=== PATIENT | female | born 1935 | race Caucasian/White ===

== ENCOUNTER 2016-11-23 14:45 | Inpatient (IN) | payer MEDICARE ==
[2016-11-23] MEDS ORDERED: Loperamide HCl 2 MG CAP PO PRN (18:26)
[2016-11-23] MEDS ORDERED: cloNIDine HCl 0.1 MG TAB PO PRN (18:26)
[2016-11-23] MEDS: Lorazepam 0.5 MG TAB PO SCH (20:49)
[2016-11-23] MEDS: Senokot S 8.6-50 MG TAB PO SCH (20:50)
[2016-11-23] MEDS: Metoprolol Tartrate 25 MG TAB PO SCH (20:50)
[2016-11-23] MEDS: Simvastatin 20 MG TAB PO SCH (20:50)
[2016-11-23] MEDS: Apixaban 5 MG TAB PO SCH (20:51)
[2016-11-24] MEDS: Calcium Carbonate + Vit D 1 TAB PO SCH (08:13)
[2016-11-24] MEDS: Clopidogrel Bisulfate 75 MG TAB PO SCH (08:13)
[2016-11-24] MEDS: Losartan Potassium 50 MG TAB PO SCH (08:14)
[2016-11-24] MEDS: Apixaban 5 MG TAB PO SCH ×2 (08:14→20:35)
[2016-11-24] MEDS: Metoprolol Tartrate 25 MG TAB PO SCH ×2 (08:17→20:35)
--- NOTE | 2016-11-24 15:08 | HP ---
DATE OF ADMISSION: 11/23/2016 CHIEF COMPLAINT: Physical deconditioning, status post aortic valve replacement. HISTORY OF PRESENT ILLNESS: An 81-year-old female who had her aortic valve replacement on 11/20/[address] Wynn at [facility] in [place]; a mechanical valve was placed for which she is currently anticoagulated on Plavix and Eliquis with the plan to possibly be discontinuing Plavix in approximately 6 months. She is to follow up with Dr. Wynn in 1-2 weeks and thereafter at [facility] in 1 month in [place]. The patient states her daughter is to schedule these appointments. She lives at a [facility] in [place] independently, but is unable to live at home and perform ADL's successfully at this time. She is admitted here for physical therapy and occupational therapy to successfully transfer back to her home facility, so that she may perform her activities of daily living. She denies chest pain or dyspnea. She has some generalized fatigue after participating with physical therapy this morning. She does have a walker to aid ambulation both here and at her home. She reports her intake and output to be at baseline. Her primary care provider is Dr. Gerardo Triplett in [place]. PAST MEDICAL HISTORY: Includes ulcerative colitis, hypertension, anxiety, constipation and hyperlipidemia. PAST SURGICAL HISTORY: She has had tumor removed from bilateral breasts, these were benign. Aortic valve has been replaced with a mechanical valve. She has a prior bladder suspension, left lower lobe back procedure, cholecystectomy, bilateral inguinal hernia repair, partial small bowel removal and a total abdominal hysterectomy bilateral salpingo-oophorectomy. SOCIAL HISTORY: She lives in [place] alone. She is a nonsmoker with no ETOH or illicit drug use. FAMILY HISTORY: She has 2 living brothers and one sister, all with cardiac history. She has one sister. One brother is from complications from diabetes and one brother status post motor vehicle accident. Her father of a myocardial infarction. Mother of colon cancer. ALLERGIES: She is allergic to MORPHINE. CURRENT MEDICATIONS: Include Caltrate 600 one tablet p.o. daily, vitamin D plus minerals, Psyllium Fiber two caps p.o. at bedtime, docusate sodium/senna one tab p.o. at bedtime, clonidine 0.1 mg p.o. q.2 hours p.r.n., tramadol 50 mg p.o. q.8 hours p.r.n., Plavix 75 mg p.o. daily, Eliquis 5 mg p.o. b.i.d., amlodipine 10 mg p.o. daily, simvastatin 10 mg p.o. at bedtime, Protonix 40 mg p.o. daily, metoprolol tartrate 25 mg p.o. b.i.d., losartan 100 mg p.o. daily, Ativan 2 mg p.o. at bedtime and loperamide 2 mg p.o. p.r.n. REVIEW OF SYSTEMS: GENERAL: The patient does report of generalized fatigue. She denies fever, chills or diaphoresis. EAR, NOSE AND THROAT. She denies sore throat, nasal drainage or congestion. CARDIOVASCULAR: Denies chest pain or palpitations. RESPIRATORY: Denies shortness of breath or cough. GASTROINTESTINAL: Denies abdominal pain, nausea, vomiting, diarrhea or constipation. GENITOURINARY: Denies dysuria or hematuria. MUSCULOSKELETAL: Denies joint pain or swelling. DERMATOLOGIC: Denies rash. NEUROLOGIC: Denies headache. LABORATORY DATA: None are pending. PHYSICAL EXAMINATION: VITAL SIGNS: Temperature is 98.1, pulse of 73, blood pressure 151/69, oxygen is 97% on room air. GENERAL: The patient is alert, cooperative, in no acute distress. HEAD, EYES, EARS, NOSE AND THROAT: Head is normocephalic and atraumatic. Eyes : Pupils are equal, round, and reactive to light. Extraocular muscles are intact. Sclerae and conjunctivae are clear. She has moist mucous membranes. NECK: Supple, without JVD, no meningeal signs. CARDIOVASCULAR: Regular rate and rhythm with normal S1, S2. There is a 2-3/6 systolic ejection murmur. RESPIRATORY: Clear to auscultation bilaterally without wheezes, rales or rhonchi. ABDOMEN: Soft, nontender to palpation. No rebound or guarding with normal bowel sounds. EXTREMITIES: No clubbing, cyanosis or edema. DERMATOLOGIC: No rashes. NEUROLOGICAL: Nonfocal. No focal deficits. PSYCHIATRIC: Cranial nerves II through XII are intact. ASSESSMENT AND PLAN: 1. Physical deconditioning. The patient will participate with physical therapy , occupational therapy here until she meets goals set, enabling her to return home and successfully perform her activities of daily living. Upon discharge, she may follow up with her PCP, Dr. Gerardo Triplett in [place]. 2. She is status post aortic valve replacement with mechanical valve, she is on appropriate anticoagulation therapy with plan to follow up with both Dr. Wynn and Cardiology team in [place] at [facility]. 3. Hypertension. Blood pressure is currently stable. We will continue her home medications and monitor her blood pressure regularly. 4. Hyperlipidemia. She is on a statin with no other side effects noted. 5. Anxiety. We will continue her home medication, benzodiazepine at bedtime as scheduled. 6. Prophylaxes. She is appropriately anticoagulated on Eliquis and Plavix; will resume her home proton pump inhibitor as well. SHEELA
[2016-11-24] MEDS ORDERED: Milk Of Magnesia 30 ML UDCUP PO PRN (15:55)
[2016-11-24] MEDS: Lorazepam 0.5 MG TAB PO SCH (20:35)
[2016-11-24] MEDS: Simvastatin 20 MG TAB PO SCH (20:35)
[2016-11-24] MEDS: Senokot S 8.6-50 MG TAB PO SCH (20:35)
[2016-11-25] MEDS: Apixaban 5 MG TAB PO SCH ×2 (08:29→21:02)
[2016-11-25] MEDS: Calcium Carbonate + Vit D 1 TAB PO SCH (08:29)
[2016-11-25] MEDS: Clopidogrel Bisulfate 75 MG TAB PO SCH (08:29)
[2016-11-25] MEDS: Losartan Potassium 50 MG TAB PO SCH (08:30)
[2016-11-25] MEDS: Metoprolol Tartrate 25 MG TAB PO SCH ×2 (08:30→21:05)
[2016-11-25] MEDS ORDERED: Lorazepam 0.5 MG TAB ONE (20:56)
[2016-11-25] MEDS: Lorazepam 0.5 MG TAB PO SCH (21:03)
[2016-11-25] MEDS: Simvastatin 20 MG TAB PO SCH (21:04)
[2016-11-25] MEDS: Senokot S 8.6-50 MG TAB PO SCH (21:04)
[2016-11-25] MEDS: traMADol HCl 50 MG TAB PO PRN (21:10)
[2016-11-26] MEDS ORDERED: Senokot 8.6 MG TAB PO PRN (07:51)
[2016-11-26] MEDS: Apixaban 5 MG TAB PO SCH ×2 (08:38→20:30)
[2016-11-26] MEDS: Losartan Potassium 50 MG TAB PO SCH (08:38)
[2016-11-26] MEDS: Calcium Carbonate + Vit D 1 TAB PO SCH (08:38)
[2016-11-26] MEDS: Metoprolol Tartrate 25 MG TAB PO SCH ×2 (08:38→20:29)
[2016-11-26] MEDS: Clopidogrel Bisulfate 75 MG TAB PO SCH (08:38)
[2016-11-26] MEDS: traMADol HCl 50 MG TAB PO PRN (13:28)
[2016-11-26] MEDS: Simvastatin 20 MG TAB PO SCH (20:29)
[2016-11-26] MEDS: Senokot S 8.6-50 MG TAB PO SCH (20:30)
[2016-11-26] MEDS: Lorazepam 0.5 MG TAB PO SCH (20:30)
[2016-11-27] MEDS: Calcium Carbonate + Vit D 1 TAB PO SCH (07:54)
[2016-11-27] MEDS: Clopidogrel Bisulfate 75 MG TAB PO SCH (09:14)
[2016-11-27] MEDS: Losartan Potassium 50 MG TAB PO SCH (09:14)
[2016-11-27] MEDS: Apixaban 5 MG TAB PO SCH ×2 (09:15→20:18)
[2016-11-27] MEDS: Metoprolol Tartrate 25 MG TAB PO SCH ×2 (09:15→20:19)
[2016-11-27] MEDS: Lorazepam 0.5 MG TAB PO SCH (20:18)
[2016-11-27] MEDS: Senokot S 8.6-50 MG TAB PO SCH (20:19)
[2016-11-27] MEDS: Simvastatin 20 MG TAB PO SCH (20:19)
[2016-11-27] MEDS: traMADol HCl 50 MG TAB PO PRN (20:20)
[2016-11-28] MEDS: Clopidogrel Bisulfate 75 MG TAB PO SCH (08:32)
[2016-11-28] MEDS: Losartan Potassium 50 MG TAB PO SCH (08:33)
[2016-11-28] MEDS: Metoprolol Tartrate 25 MG TAB PO SCH ×2 (08:35→20:43)
[2016-11-28] MEDS: Calcium Carbonate + Vit D 1 TAB PO SCH (08:35)
[2016-11-28] MEDS: Apixaban 5 MG TAB PO SCH ×2 (08:35→20:43)
[2016-11-28] MEDS: Simvastatin 20 MG TAB PO SCH (20:42)
[2016-11-28] MEDS: Senokot S 8.6-50 MG TAB PO SCH (20:43)
[2016-11-28] MEDS: Lorazepam 0.5 MG TAB PO SCH (20:43)
[2016-11-28] MEDS: traMADol HCl 50 MG TAB PO PRN (20:49)
[2016-11-29] MEDS: Losartan Potassium 50 MG TAB PO SCH (08:41)
[2016-11-29] MEDS: Metoprolol Tartrate 25 MG TAB PO SCH ×2 (08:42→21:35)
[2016-11-29] MEDS: Apixaban 5 MG TAB PO SCH ×2 (08:42→21:36)
[2016-11-29] MEDS: Clopidogrel Bisulfate 75 MG TAB PO SCH (08:42)
[2016-11-29] MEDS: Calcium Carbonate + Vit D 1 TAB PO SCH (08:42)
[2016-11-29] MEDS: Lorazepam 0.5 MG TAB PO SCH (21:34)
[2016-11-29] MEDS: Simvastatin 20 MG TAB PO SCH (21:35)
[2016-11-29] MEDS: Senokot S 8.6-50 MG TAB PO SCH (21:36)
[2016-11-30] MEDS: Calcium Carbonate + Vit D 1 TAB PO SCH (08:12)
[2016-11-30] MEDS: Clopidogrel Bisulfate 75 MG TAB PO SCH (08:12)
[2016-11-30] MEDS: Apixaban 5 MG TAB PO SCH ×2 (08:12→20:19)
[2016-11-30] MEDS: Losartan Potassium 50 MG TAB PO SCH (08:12)
[2016-11-30] MEDS: Metoprolol Tartrate 25 MG TAB PO SCH ×2 (08:13→20:19)
[2016-11-30] MEDS: Lorazepam 0.5 MG TAB PO SCH (20:18)
[2016-11-30] MEDS: Senokot S 8.6-50 MG TAB PO SCH (20:19)
[2016-11-30] MEDS: Simvastatin 20 MG TAB PO SCH (20:20)
[2016-11-30] MEDS: traMADol HCl 50 MG TAB PO PRN (20:22)
[2016-12-01] MEDS: Calcium Carbonate + Vit D 1 TAB PO SCH (08:44)
[2016-12-01] MEDS: Apixaban 5 MG TAB PO SCH ×2 (08:45→20:20)
[2016-12-01] MEDS: Losartan Potassium 50 MG TAB PO SCH (08:46)
[2016-12-01] MEDS: Clopidogrel Bisulfate 75 MG TAB PO SCH (08:46)
[2016-12-01] MEDS: Metoprolol Tartrate 25 MG TAB PO SCH ×2 (08:47→20:20)
[2016-12-01] MEDS ORDERED: Lorazepam 0.5 MG TAB ONE (20:06)
[2016-12-01] MEDS: Simvastatin 20 MG TAB PO SCH (20:20)
[2016-12-01] MEDS: Senokot S 8.6-50 MG TAB PO SCH (20:21)
[2016-12-01] MEDS: Lorazepam 0.5 MG TAB PO SCH (20:21)
[2016-12-01] MEDS: traMADol HCl 50 MG TAB PO PRN (20:22)
[2016-12-02 06:16] VITALS: BMI 25.6
[2016-12-02] MEDS: Apixaban 5 MG TAB PO SCH ×2 (08:29→20:50)
[2016-12-02] MEDS: Calcium Carbonate + Vit D 1 TAB PO SCH (08:29)
[2016-12-02] MEDS: Clopidogrel Bisulfate 75 MG TAB PO SCH (08:29)
[2016-12-02] MEDS: Metoprolol Tartrate 25 MG TAB PO SCH ×2 (08:29→20:50)
[2016-12-02] MEDS: Losartan Potassium 50 MG TAB PO SCH (08:30)
[2016-12-02] MEDS: Lorazepam 0.5 MG TAB PO SCH (20:49)
[2016-12-02] MEDS: Simvastatin 20 MG TAB PO SCH (20:50)
[2016-12-02] MEDS: traMADol HCl 50 MG TAB PO PRN (20:51)
[2016-12-02] MEDS: Senokot S 8.6-50 MG TAB PO SCH (20:51)
[2016-12-03] MEDS: Metoprolol Tartrate 25 MG TAB PO SCH ×2 (08:06→21:17)
[2016-12-03] MEDS: Clopidogrel Bisulfate 75 MG TAB PO SCH (08:07)
[2016-12-03] MEDS: Calcium Carbonate + Vit D 1 TAB PO SCH (08:07)
[2016-12-03] MEDS: Losartan Potassium 50 MG TAB PO SCH (08:07)
[2016-12-03] MEDS: Apixaban 5 MG TAB PO SCH ×2 (08:08→21:15)
[2016-12-03] MEDS: Lorazepam 0.5 MG TAB PO SCH (21:16)
[2016-12-03] MEDS: Simvastatin 20 MG TAB PO SCH (21:18)
[2016-12-03] MEDS: Senokot S 8.6-50 MG TAB PO SCH (21:18)
[2016-12-03] MEDS: traMADol HCl 50 MG TAB PO PRN (21:19)
[2016-12-04] MEDS: Calcium Carbonate + Vit D 1 TAB PO SCH (09:29)
[2016-12-04] MEDS: Losartan Potassium 50 MG TAB PO SCH (09:30)
[2016-12-04] MEDS: Clopidogrel Bisulfate 75 MG TAB PO SCH (09:30)
[2016-12-04] MEDS: Apixaban 5 MG TAB PO SCH ×2 (09:30→20:42)
[2016-12-04] MEDS: Metoprolol Tartrate 25 MG TAB PO SCH ×2 (09:31→20:42)
[2016-12-04] MEDS: Lorazepam 0.5 MG TAB PO SCH (20:41)
[2016-12-04] MEDS: Senokot S 8.6-50 MG TAB PO SCH (20:43)
[2016-12-04] MEDS: traMADol HCl 50 MG TAB PO PRN (20:43)
[2016-12-04] MEDS: Simvastatin 20 MG TAB PO SCH (20:44)
[2016-12-05] MEDS: Calcium Carbonate + Vit D 1 TAB PO SCH (08:16)
[2016-12-05] MEDS: Metoprolol Tartrate 25 MG TAB PO SCH ×2 (08:16→20:58)
[2016-12-05] MEDS: Apixaban 5 MG TAB PO SCH ×2 (08:16→20:58)
[2016-12-05] MEDS: Clopidogrel Bisulfate 75 MG TAB PO SCH (08:17)
[2016-12-05] MEDS: Losartan Potassium 50 MG TAB PO SCH (08:20)
[2016-12-05] MEDS: Simvastatin 20 MG TAB PO SCH (20:57)
[2016-12-05] MEDS: Lorazepam 0.5 MG TAB PO SCH (20:58)
[2016-12-05] MEDS: Senokot S 8.6-50 MG TAB PO SCH (20:58)
[2016-12-05] MEDS: traMADol HCl 50 MG TAB PO PRN (20:59)
[2016-12-06] MEDS: Calcium Carbonate + Vit D 1 TAB PO SCH (09:32)
[2016-12-06] MEDS: Clopidogrel Bisulfate 75 MG TAB PO SCH (09:32)
[2016-12-06] MEDS: Metoprolol Tartrate 25 MG TAB PO SCH ×2 (09:32→20:23)
[2016-12-06] MEDS: Apixaban 5 MG TAB PO SCH ×2 (09:32→20:25)
[2016-12-06] MEDS: Losartan Potassium 50 MG TAB PO SCH (09:33)
[2016-12-06] MEDS: Simvastatin 20 MG TAB PO SCH (20:23)
[2016-12-06] MEDS: traMADol HCl 50 MG TAB PO PRN (20:24)
[2016-12-06] MEDS: Lorazepam 0.5 MG TAB PO SCH (20:25)
[2016-12-06] MEDS: Senokot S 8.6-50 MG TAB PO SCH (20:25)
[2016-12-07 06:26] VITALS: BP 148/72; TEMP 98.4
[2016-12-07] MEDS: Clopidogrel Bisulfate 75 MG TAB PO SCH (08:13)
[2016-12-07] MEDS: Calcium Carbonate + Vit D 1 TAB PO SCH (08:13)
[2016-12-07] MEDS: Apixaban 5 MG TAB PO SCH (08:13)
[2016-12-07] MEDS: Losartan Potassium 50 MG TAB PO SCH (08:22)
[2016-12-07] MEDS: Metoprolol Tartrate 25 MG TAB PO SCH (08:23)
--- NOTE | 2016-12-07 17:45 | DIS ---
DATE OF ADMISSION: 11/23/2016 DATE OF DISCHARGE: 12/07/2016 ADMISSION DIAGNOSES: Status post aortic valve replacement, physical deconditioning, hypertension, hyperlipidemia, anxiety, constipation. DISCHARGE DIAGNOSES: Status post aortic valve replacement, hypertension, hyperlipidemia, anxiety, constipation. PROCEDURES: None. HOSPITAL COURSE: 81-year-old female status post aortic valve replacement on [address] Wynn; a mechanical valve was placed and she has been appropriately started on anticoagulation therapy including Plavix and Eliquis, with plan to possibility discontinue Plavix 6 months post-procedure. The patient transitioned to our facility secondary to physical deconditioning with a plan to participate with PT/OT in order to return home where she lives alone. The patient adequately progressed and was able to meet the goals set forth for her by Physical Therapy, in order for her to be able to perform her activities of daily living. She had no complications during her stay and her regular medications were resumed. She will be able to successfully transition to her home setting at this point with plans to follow up further with cardiology, Dr. Wynn, on Friday. DISPOSITION: Patient will return home to her [facility] in [place] where she lives independently. She will follow up with Dr. Wynn Cardiology on this coming Friday. She will also follow up with her primary care provider, Dr. Gerardo Triplett in [place] in a week. DISCHARGE MEDICATIONS: Include Caltrate 600 one tab p.o. daily, vitamin D plus minerals, Psyllium Fibre 2 caps p.o. at bedtime, Docusate Sodium/Senna 1 tab p.o. at bedtime, clonidine 0.1 mg p.o. q.2 hours p.r.n., tramadol 50 mg p.o. q.8 hours p.r.n., Plavix 75 mg p.o. daily, Eliquis 5 mg p.o. b.i.d., amlodipine 10 mg p.o. daily, simvastatin 10 mg p.o. at bedtime, Protonix 40 mg p.o. daily, metoprolol tartrate 25 mg p.o. b.i.d., losartan 100 mg p.o. daily, Ativan 10 mg p.o. at bedtime, Loperamide 2 mg p.o. p.r.n. MTDD
== END 2016-12-07 12:20 | disposition home health service (06) | DRG 948 ==
LOC: BURMED 14:45
PROVIDERS: ADMIT Family Medicine; ATTEND Family Medicine
DX: R53.83 Other fatigue (principal); K51.90 Ulcerative colitis, unspecified, without complications; Z95.2 Presence of prosthetic heart valve; I10 Essential (primary) hypertension; F41.9 Anxiety disorder, unspecified; K59.00 Constipation, unspecified; E78.5 Hyperlipidemia, unspecified; Z88.8 Allergy status to other drugs, medicaments and biological substances
CPT/HCPCS: G8978-GP-CJ; G8979-GP-CI; G8987-GO-CK; G8988-GO-CI

== ENCOUNTER 2018-03-03 09:35 | Inpatient (IN) | payer MEDICARE ==
[2018-03-03 15:14] VITALS: BMI 24.7
[2018-03-03] MEDS ORDERED: Gabapentin 300 MG CAP PO PRN (16:55)
[2018-03-03] MEDS ORDERED: Lidocaine 5% Patch TD SCH (17:00)
[2018-03-03] MEDS: cloNIDine 0.1 MG TAB PO PRN (17:18)
[2018-03-03] MEDS: Lorazepam 0.5 MG TAB PO SCH (19:58)
[2018-03-03] MEDS: Apixaban 5 MG TAB PO SCH (19:59)
[2018-03-03] MEDS: Simvastatin 20 MG TAB PO SCH (19:59)
[2018-03-03] MEDS: Furosemide 20 MG TAB PO SCH (19:59)
[2018-03-03] MEDS: Carvedilol 12.5 MG TAB PO SCH (20:03)
[2018-03-03] MEDS: hydrALAZINE 25 MG TAB PO SCH (20:03)
[2018-03-03] MEDS ORDERED: hydrALAZINE 25 MG TAB PO SCH (21:00)
[2018-03-04] MEDS ORDERED: Lidocaine Patch Removal 1 EACH TOP SCH (05:00)
[2018-03-04] MEDS: cloNIDine 0.1 MG TAB PO PRN (05:05)
[2018-03-04] MEDS ORDERED: [UNRECOGNIZED DRUG - OTHER] PO SCH (08:00)
[2018-03-04] MEDS ORDERED: predniSONE 20 MG TAB PO SCH (08:00)
[2018-03-04] MEDS: Multivitamin W/ Minerals 1 TAB PO SCH (08:49)
[2018-03-04] MEDS: Furosemide 20 MG TAB PO SCH ×2 (08:50→20:29)
[2018-03-04] MEDS: hydrALAZINE 25 MG TAB PO SCH ×3 (08:50→20:19)
[2018-03-04] MEDS: NIFEdipine XL 30 MG TAB PO SCH (08:51)
[2018-03-04] MEDS: Losartan Potassium 50 MG TAB PO SCH (08:51)
[2018-03-04] MEDS: Carvedilol 12.5 MG TAB PO SCH ×2 (08:51→20:23)
[2018-03-04] MEDS: Apixaban 5 MG TAB PO SCH ×2 (08:51→20:24)
[2018-03-04] MEDS ORDERED: MESALAMINE 2.4 GM PO SCH (09:00)
[2018-03-04] MEDS ORDERED: Calcium Carbonate + Vit D 500 MG TAB PO SCH (09:00)
[2018-03-04] MEDS: Artificial Tear Sol 15 ML BOT EA EYE SCH ×2 (17:02→20:25)
[2018-03-04] MEDS ORDERED: Polyethylene Glycol 3350 17 GM Packet PO PRN (18:47)
[2018-03-04] MEDS: Simvastatin 20 MG TAB PO SCH (20:23)
[2018-03-04] MEDS: Lorazepam 0.5 MG TAB PO SCH (20:25)
[2018-03-05] MEDS: cloNIDine 0.1 MG TAB PO PRN (06:15)
[2018-03-05] MEDS ORDERED: predniSONE 10 MG TAB PO SCH (08:00)
[2018-03-05] MEDS: Losartan Potassium 50 MG TAB PO SCH (09:00)
[2018-03-05] MEDS: hydrALAZINE 25 MG TAB PO SCH ×3 (09:00→20:19)
[2018-03-05] MEDS: Apixaban 5 MG TAB PO SCH ×2 (09:01→20:16)
[2018-03-05] MEDS: Multivitamin W/ Minerals 1 TAB PO SCH (09:02)
[2018-03-05] MEDS: NIFEdipine XL 30 MG TAB PO SCH (09:02)
[2018-03-05] MEDS: Furosemide 20 MG TAB PO SCH ×2 (09:02→20:16)
[2018-03-05] MEDS: Artificial Tear Sol 15 ML BOT EA EYE SCH ×3 (09:03→20:19)
[2018-03-05] MEDS: Carvedilol 12.5 MG TAB PO SCH ×2 (09:03→20:18)
[2018-03-05] MEDS: traMADol HCl 50 MG TAB PO PRN (13:33)
[2018-03-05] MEDS: Simvastatin 20 MG TAB PO SCH (20:17)
[2018-03-05] MEDS: Lorazepam 0.5 MG TAB PO SCH (20:18)
[2018-03-06] MEDS: Zolpidem Tartrate 5 MG TAB PO PRN ×2 (00:09→23:53)
[2018-03-06] MEDS: Artificial Tear Sol 15 ML BOT EA EYE SCH ×3 (08:08→20:20)
[2018-03-06] MEDS: Carvedilol 12.5 MG TAB PO SCH ×2 (08:09→20:23)
[2018-03-06] MEDS: Losartan Potassium 50 MG TAB PO SCH (08:09)
[2018-03-06] MEDS: hydrALAZINE 25 MG TAB PO SCH ×3 (08:09→20:22)
[2018-03-06] MEDS: predniSONE 20 MG TAB PO SCH (08:13)
[2018-03-06] MEDS: NIFEdipine XL 30 MG TAB PO SCH (08:13)
[2018-03-06] MEDS: Apixaban 5 MG TAB PO SCH ×2 (08:13→20:27)
[2018-03-06] MEDS: Furosemide 20 MG TAB PO SCH ×2 (08:13→20:23)
[2018-03-06] MEDS: Multivitamin W/ Minerals 1 TAB PO SCH (08:14)
[2018-03-06] MEDS: cloNIDine 0.1 MG TAB PO PRN (11:40)
[2018-03-06] MEDS: Lorazepam 0.5 MG TAB PO SCH (20:21)
[2018-03-06] MEDS: Simvastatin 20 MG TAB PO SCH (20:26)
[2018-03-07] MEDS: Furosemide 20 MG TAB PO SCH ×2 (08:45→21:20)
[2018-03-07] MEDS: Apixaban 5 MG TAB PO SCH ×2 (08:45→20:32)
[2018-03-07] MEDS: predniSONE 20 MG TAB PO SCH (08:45)
[2018-03-07] MEDS: Carvedilol 12.5 MG TAB PO SCH ×2 (08:46→20:33)
[2018-03-07] MEDS: Multivitamin W/ Minerals 1 TAB PO SCH (08:46)
[2018-03-07] MEDS: hydrALAZINE 25 MG TAB PO SCH ×3 (08:46→20:34)
[2018-03-07] MEDS: Losartan Potassium 50 MG TAB PO SCH (08:46)
[2018-03-07] MEDS: Artificial Tear Sol 15 ML BOT EA EYE SCH ×3 (08:47→20:36)
[2018-03-07] MEDS: NIFEdipine XL 30 MG TAB PO SCH (08:49)
[2018-03-07] MEDS: Lorazepam 0.5 MG TAB PO SCH (20:31)
[2018-03-07] MEDS: Simvastatin 20 MG TAB PO SCH (20:33)
[2018-03-07] MEDS: Nystatin Powder 15 GM BOT TOP SCH (20:35)
[2018-03-07] MEDS: Zolpidem Tartrate 5 MG TAB PO PRN (23:47)
[2018-03-08] MEDS: cloNIDine 0.1 MG TAB PO PRN (04:31)
[2018-03-08] MEDS: traMADol HCl 50 MG TAB PO PRN (04:31)
[2018-03-08 06:40] VITALS: TEMP 98
[2018-03-08] MEDS ORDERED: predniSONE 10 MG TAB PO SCH (08:00)
[2018-03-08] MEDS ORDERED: Saccharomyces boulardii 250 MG CAP PO SCH (09:00)
[2018-03-08 09:31] VITALS: BP 174/76
[2018-03-08] MEDS: hydrALAZINE 25 MG TAB PO SCH (09:58)
[2018-03-08] MEDS: Furosemide 20 MG TAB PO SCH (09:58)
[2018-03-08] MEDS: Artificial Tear Sol 15 ML BOT EA EYE SCH (09:58)
[2018-03-08] MEDS: Carvedilol 12.5 MG TAB PO SCH (09:58)
[2018-03-08] MEDS: Apixaban 5 MG TAB PO SCH (09:58)
[2018-03-08] MEDS: Multivitamin W/ Minerals 1 TAB PO SCH (09:59)
[2018-03-08] MEDS: Nystatin Powder 15 GM BOT TOP SCH (09:59)
[2018-03-08] MEDS: Losartan Potassium 50 MG TAB PO SCH (09:59)
[2018-03-08] MEDS: NIFEdipine XL 30 MG TAB PO SCH (09:59)
--- NOTE | 2018-03-10 13:53 | DIS ---
DATE OF ADMISSION: 03/03/2018 DATE OF DISCHARGE: 03/08/2018 ADMISSION DIAGNOSES: Ulcerative colitis, physical deconditioning, hypertension, history of aortic va lve replacement, and hyperlipidemia. PROCEDURES: None. HOSPITAL COURSE: An 82-year-old female with an underlying history of ulcerative colitis, transitione d here from [facility] in [place] to work with Physical Therapy and Occupational Therapy to addre ss her physical deconditioning. During her admission in [place], she was evaluated by Dr. Jeffy ramirez ry to abdominal pain and diarrhea. After evaluation, her symptoms were not felt to be attributed to a true colitis flare and she was instructed to complete her prednisone taper. Upon evaluation here, her abdominal pain largely resolved and she had no further cases of diarrhea. Her intake remained at baseline. She was able to successfully complete the goal set forth by Physical Therapy and Occupati onal Therapy to enable her to return to her home setting. She is ambulatory and feeling well at this time and is amenable to discharge home today. DISPOSITION: The patient will discharge home and follow up with her PCP, Dr. Triplett, within the next week. DISCHARGE MEDICATIONS: The patient will resume her usual home medications. There have been no ochoa es that she is to discharge with today. These include Coreg 12.5 mg b.i.d., Eliquis 5 mg b.i.d., izzy azepam 2 mg at bedtime, losartan 100 mg daily, gabapentin 300 mg t.i.d., acetaminophen with codeine q .4 hours p.r.n., Lasix 20 mg p.o. b.i.d., hydralazine 25 mg t.i.d., Zocor 10 mg at bedtime, and nifed ipine 30 mg daily.
== END 2018-03-08 11:32 | disposition home or self-care (01) | DRG 392 ==
LOC: BURMED 15:00
PROVIDERS: ADMIT Family Medicine; ATTEND Family Medicine
DX: R10.84 Generalized abdominal pain (principal); E87.2 Acidosis; K51.90 Ulcerative colitis, unspecified, without complications; N18.3 Chronic kidney disease, stage 3 (moderate); E78.5 Hyperlipidemia, unspecified; I10 Essential (primary) hypertension; Z95.2 Presence of prosthetic heart valve; Z79.01 Long term (current) use of anticoagulants; Z79.899 Other long term (current) drug therapy; Z88.5 Allergy status to narcotic agent; R11.2 Nausea with vomiting, unspecified; R19.7 Diarrhea, unspecified
CPT/HCPCS: G8978-GP-CJ; G8979-GP-CI; J7506; J7512

== ENCOUNTER 2019-03-02 12:44 | Emergency (ER) | payer MEDICARE ==
[2019-03-02 13:21] LABS: #Basophils 0.1 thou/uL (0.0-0.2); #Lymphocytes 1.2 thou/uL (1.20-3.40); #Monocytes 1.1 thou/uL (0.11-0.59); #Neutrophils 9.4 thou/uL (1.40-6.50); %Basophils 0.8 % (0.0-1.0); %Eosinophils 0.4 % (0.0-10.0); %Lymphocytes 9.9 % (21.0-51.0); %Monocytes 9.5 % (0.0-10.0); %Neutrophils 79.5 % (42.0-75.0); Hemoglobin 14.5 g/dL (12.0-16.0); Mean Corpuscular HGB CONC 31.4 g/dL (32.0-36.0); Mean Corpuscular Hemoglobin 27.8 pg (27.0-31.0); Mean Corpuscular Volume 88.4 fL (78.0-98.0); Mean Platelet Volume 6.3 fL (7.4-10.4); Platelet Count 266 thou/uL (130-400); RBC Distribution Width 13.3 % (11.5-14.5); Red Blood Cell (RBC) Count 5.22 mill/uL (4.20-5.40); White Blood Cell (WBC) Count 11.8 thou/uL (4.8-10.8)
[2019-03-02 13:30] LABS: INR-International Normal Ratio 1.5; PTT 39.9 SEC (22.9-36.1)
[2019-03-02 13:35] LABS: ALT (SGPT) 9 U/L (8-55); AST (SGOT) 19 U/L (5-34); Albumin 4.5 g/dL (3.4-4.8); Alkaline Phosphatase 105 U/L (40-150); Anion Gap 16 mmol/L (10-20); BUN (Urea Nitrogen) 25 mg/dL (9.8-20.1); Bilirubin, Total 0.7 mg/dL (0.2-1.2); Calc. Creatinine Clearance 0 mL/min (70-130); Calcium 9.9 mg/dL (7.8-10.44); Carbon Dioxide 24 mmol/L (23-31); Chloride 101 mmol/L (98-107); Estimated GFR-MDRD 25; Glucose 107 mg/dL (83-110); Lipase 18 U/L (8-78); Potassium 4.1 mmol/L (3.5-5.1); Protein, Total 7.5 g/dL (6.0-8.3); Sodium 137 mmol/L (136-145)
[2019-03-02 13:41] LABS: Clarity Clear (Clear)
[2019-03-02 13:42] LABS: Bilirubin Negative (Negative); Blood, Urine Negative (Negative); Glucose, Urine (Dipstick) Negative (Negative); Leukocyte Negative (Negative); Nitrite Negative (Negative); Protein, Urine (Dipstick) Negative (Neg-Trace); Urobilinogen 0.2 mg/dL (0.2-1.0)
[2019-03-02 13:51] LABS: CKMB 2.7 ng/mL (0-6.6)
[2019-03-02] MEDS ORDERED: Piperacillin/Tazobactam 4.5 GM VIAL ONE (14:22)
[2019-03-02] MEDS ORDERED: Nitroglycerin 50 MG/250 ML BOT 250 ML ONE (14:22)
[2019-03-02] MEDS ORDERED: Aspirin Chewable 81 MG TAB ONE (14:22)
[2019-03-02] MEDS ORDERED: Sodium Chloride 0.9% 100 ML ONE (14:28)
[2019-03-02] MEDS ORDERED: Metoprolol Tartrate 5 MG/5 ML VIAL ONE (14:58)
--- NOTE | 2019-03-02 17:34 | RAD ---
PORTABLE CHEST: 03/02/19 An AP portable film at 1311 was compared with an 06/21/18 study. Mild cardiomegaly is the same as before. There is no sign of congestion or pleural effusion. While it is difficult to see the left base well, the lungs are most likely clear. IMPRESSION: No acute findings compared to the prior study. POS: HOME
--- NOTE | 2019-03-02 17:38 | CT ---
CT ABDOMEN AND PELVIS WITHOUT CONTRAST 03/02/[address] of the abdomen and pelvis was performed for evaluation of epigastric pain and possible seps is. Axial slices were initially obtained, then coronal and sagittal reconstructions were done. IV con trast was deferred due to a very low GFR. Slices through the lower chest show sometimes which can be seen in pyelonephritis and sometimes it c an just merely be a residual of a prior episode. An incidental finding on the study is a mild anteri or compression of the L2 vertebral body which does not appear recent. IMPRESSION: 1. Mild streaking in the lung bases, most likely scarring, less likely atelectasis. 2. Diverticulosis without signs of diverticulitis. 3. Slightly increased streaking in the fat around the left kidney which may or may not be curren tly significant. See above. 4. Small hiatal hernia. POS: HOME
== END 2019-03-02 15:15 | disposition short-term general hospital (02) ==
LOC: BURERS 12:44
DX: A41.9 Sepsis, unspecified organism (principal); R07.9 Chest pain, unspecified; R79.89 Other specified abnormal findings of blood chemistry; E03.9 Hypothyroidism, unspecified; I12.9 Hypertensive chronic kidney disease with stage 1 through stage 4 chronic kidney disease, or unspecified chronic kidney disease; N18.3 Chronic kidney disease, stage 3 (moderate); F41.9 Anxiety disorder, unspecified; Z79.899 Other long term (current) drug therapy
CPT/HCPCS: 36415; 51701; 71045; 74176; 80053; 81003; 82553; 83605; 83690; 84484; 85025; 85610; 85730; 87040; 93005; 94760; 96365; 96375; J2543; J3490